=== PATIENT | male | born 1975 | race African-American/Black ===

== ENCOUNTER 2017-02-21 14:49 | Emergency (ER) | payer SELFPAY ==
[~2017-02-21] VITALS: Ht 170.2 cm; Wt 75.0 kg
[2017-02-21] MEDS ORDERED: KETOROLAC 60MG/2ML VIAL IM ONE (16:00)
[2017-02-21 17:44] VITALS: BP 152/88
== END 2017-02-21 17:49 | disposition home or self-care (01) ==
LOC: ER 14:49
DX: S42.292A Other displaced fracture of upper end of left humerus, initial encounter for closed fracture (principal); S52.202A Unspecified fracture of shaft of left ulna, initial encounter for closed fracture; F12.10 Cannabis abuse, uncomplicated; W19.XXXA Unspecified fall, initial encounter; Y93.39 Activity, other involving climbing, rappelling and jumping off; Y92.89 Other specified places as the place of occurrence of the external cause; Y99.8 Other external cause status
CPT/HCPCS: 29105; 71045; 73030; 96372; 99284; J1885; L3670

== ENCOUNTER 2021-11-04 05:43 | Emergency (ER) | payer BC ==
[~2021-11-04] VITALS: Ht 170.2 cm; Wt 77.0 kg
[2021-11-04 05:54] VITALS: BP 124/84
[2021-11-04] MEDS ORDERED: BACITRACIN 15GM TUBE TOP ONE (07:45)
[2021-11-04] MEDS ORDERED: BO1 TP (07:56)
[2021-11-04] MEDS ORDERED: IBUP-2028 MT (07:56)
== END 2021-11-04 08:16 | disposition home or self-care (01) ==
LOC: ER 05:43
DX: T23.001A Burn of unspecified degree of right hand, unspecified site, initial encounter (principal); T31.0 Burns involving less than 10% of body surface; X08.8XXA Exposure to other specified smoke, fire and flames, initial encounter; Y93.89 Activity, other specified; Y92.89 Other specified places as the place of occurrence of the external cause; Y99.8 Other external cause status; F12.10 Cannabis abuse, uncomplicated
CPT/HCPCS: 99282